=== PATIENT | female | born 1950 | race Caucasian/White ===

== ENCOUNTER 2019-05-29 08:03 | Day surgery (SDC) | payer MEDICARE, BC ==
[~2019-05-29] VITALS: Ht 165.1 cm; Wt 94.3 kg
[~2019-05-29 08:03] MED LIST: ACAR50; ALEN70 PO; ASCO1ER; ASPI81EC; ASPI81EC PO; ATOR40TA PO; AVANDIA; BUPR150ER; CALPHO600; CARV6.25; CIPR500 PO; CRUTCH2 USE; Coreg CR20 MG PO; DULO60 PO; EXEN10PI; EZET10-20; FISH1000 PO; HUMULIN 70100 UNIT/1 SC; HYDACE5 PO; HYDACE5325 PO; INSDET100; INSDET100 SQ; INSLI100I; INSU7030P SC; LEVEMIR FL100 UNIT/1 SC; LIRA0.6P; METR500 PO; MIRT15 PO; MULVITA; PIOG15 PO; PIOG30; PIOG45 PO; PRAVACHOL; TRAN2; TRAN4 PO; TRANDOLAPRIL PO; VITB100; WELLBUTRIN
[2019-05-29] MEDS ORDERED: AMLO5 (09:53)
[2019-05-29] MEDS ORDERED: CLOP75 (09:53)
[2019-05-29] MEDS ORDERED: ATOR20 (09:54)
[2019-05-29] MEDS ORDERED: CARV6.25 (09:54)
--- NOTE | 2019-05-29 10:40 | NUR ---
05/29/[address] AWARE CBG 215, HR 103. PT STATES SHE LAST TOOK HER COREG 05/25/19
--- NOTE | 2019-05-29 11:18 | NUR ---
05/29/19 1118 L[address] Lynne OXYGEN 10L VIA POM MASK
== END 2019-05-29 12:31 | disposition home or self-care (01) ==
LOC: ORSCSDS 08:03
PROVIDERS: Internal Medicine Gastroenterology
PROC: 0DB58ZX Excision of Esophagus, Via Natural or Artificial Opening Endoscopic, Diagnostic (ICD-10-PCS; principal; 2019-05-29 10:45)
PROC: 0DBK8ZX Excision of Ascending Colon, Via Natural or Artificial Opening Endoscopic, Diagnostic (ICD-10-PCS; principal; 2019-05-29 10:45)
PROC: 0DBM8ZX Excision of Descending Colon, Via Natural or Artificial Opening Endoscopic, Diagnostic (ICD-10-PCS; principal; 2019-05-29 10:45)
PROC: 0DB68ZX Excision of Stomach, Via Natural or Artificial Opening Endoscopic, Diagnostic (ICD-10-PCS; principal; 2019-05-29 10:45)
PROC: 0DB98ZX Excision of Duodenum, Via Natural or Artificial Opening Endoscopic, Diagnostic (ICD-10-PCS; principal; 2019-05-29 10:45)
DX: Z12.11 Encounter for screening for malignant neoplasm of colon (principal); Z86.010 Personal history of colon polyps; D12.2 Benign neoplasm of ascending colon; D12.4 Benign neoplasm of descending colon; K57.30 Diverticulosis of large intestine without perforation or abscess without bleeding; K21.9 Gastro-esophageal reflux disease without esophagitis; K22.70 Barrett's esophagus without dysplasia; K31.7 Polyp of stomach and duodenum; G47.33 Obstructive sleep apnea (adult) (pediatric); I10 Essential (primary) hypertension; E11.9 Type 2 diabetes mellitus without complications; Z87.891 Personal history of nicotine dependence; I25.10 Atherosclerotic heart disease of native coronary artery without angina pectoris; Z79.4 Long term (current) use of insulin; Z79.01 Long term (current) use of anticoagulants
CPT/HCPCS: 82947; 84443; 86803; 88305; J2704; J7120